=== PATIENT | male | born 1945 | race Caucasian/White ===

== ENCOUNTER 2018-09-09 18:36 | Inpatient (IN) | payer MEDICARE, OTHER ==
[~2018-09-09] VITALS: Ht 175.3 cm; Wt 76.7 kg
[2018-09-09 18:45] VITALS: Ht 175.3 cm; Wt 76.7 kg
[2018-09-09 19:56] LABS: BASOPHIL % 1.1 % (0-2)
[2018-09-09 19:57] LABS: PLATELET COUNT 115 x10^3mcL (130-400); RED CELL DISTRIBUTION WIDTH 16.4 % (11.5-14.5)
[2018-09-09 20:01] LABS: CALCIUM 8.7 mg/dL (8.5-10.1); CARBON DIOXIDE 29.3 mmol/L (21-32); CHLORIDE SERUM 106 mmol/L (98-107); GLUCOSE SERUM 94 mg/dL (74-106); POTASSIUM SERUM 4.5 mmol/L (3.5-5.1); SODIUM SERUM 140 mmol/L (136-145)
[2018-09-09 20:06] LABS: ALKALINE PHOSPHATASE 52 U/L (46-116); ALT/SGPT 29 U/L (16-63); AST/SGOT 18 U/L (15-37)
[2018-09-09 20:11] LABS: ALBUMIN 3.3 g/dL (3.4-5.0); TOTAL PROTEIN, SERUM 5.7 g/dL (6.4-8.2)
[2018-09-09 23:15] LABS: MAGNESIUM 1.8 mg/dL (1.8-2.4); PHOSPHOROUS 4.4 mg/dL (2.5-4.9)
[2018-09-09 23:19] LABS: CHOLESTEROL/HDL RATIO 1.7
[2018-09-09 23:56] VITALS: BP 163/82
[2018-09-10 05:36] VITALS: BP 140/67
[2018-09-10 06:52] LABS: CALCIUM 8.5 mg/dL (8.5-10.1); CARBON DIOXIDE 26.1 mmol/L (21-32); CHLORIDE SERUM 108 mmol/L (98-107); CREATININE SERUM 1.7 mg/dL (0.7-1.3); GLUCOSE SERUM 101 mg/dL (74-106); MAGNESIUM 1.8 mg/dL (1.8-2.4); PHOSPHOROUS 3.8 mg/dL (2.5-4.9); POTASSIUM SERUM 4.4 mmol/L (3.5-5.1); SODIUM SERUM 142 mmol/L (136-145)
[2018-09-10 07:29] LABS: BASOPHIL % 0.7 % (0-2); PLATELET COUNT 129 x10^3mcL (130-400); RED CELL DISTRIBUTION WIDTH 16.2 % (11.5-14.5)
[2018-09-10 09:33] VITALS: BP 154/85
[2018-09-10] MEDS ORDERED: TRAZODONE50 M1 PO (15:32)
[2018-09-10] MEDS ORDERED: SEROQUEL25 MG PO ×2 (15:33→15:34)
[2018-09-10] MEDS ORDERED: HYDRALAZINE HCL25 MG PO (15:35)
[2018-09-10] MEDS ORDERED: LIPITOR80 MG PO (15:35)
[2018-09-10] MEDS ORDERED: NAMENDA10 M2 PO (15:35)
[2018-09-10] MEDS ORDERED: ASPIR 8181 MG PO (15:35)
[2018-09-10 17:22] VITALS: BP 129/63
[2018-09-10 22:53] VITALS: BP 153/71
[2018-09-11 04:15] VITALS: BP 140/58
[2018-09-11 08:04] LABS: BASOPHIL % 0.4 % (0-2); PLATELET COUNT 136 x10^3mcL (130-400)
[2018-09-11 09:06] LABS: CALCIUM 9.6 mg/dL (8.5-10.1); CARBON DIOXIDE 25.3 mmol/L (21-32); CHLORIDE SERUM 106 mmol/L (98-107); CREATININE SERUM 1.7 mg/dL (0.7-1.3); GLUCOSE SERUM 103 mg/dL (74-106); POTASSIUM SERUM 4.2 mmol/L (3.5-5.1); SODIUM SERUM 141 mmol/L (136-145)
[2018-09-11 09:15] LABS: MAGNESIUM 1.7 mg/dL (1.8-2.4); PHOSPHOROUS 3.3 mg/dL (2.5-4.9)
[2018-09-11 09:43] VITALS: BP 142/70
[2018-09-11 12:21] VITALS: BP 142/70
[2018-09-11 16:48] VITALS: BP 122/86
== END 2018-09-11 20:15 | disposition short-term general hospital (02) | DRG 604 ==
LOC: ED 18:36 → MU 22:32
PROVIDERS: Specialist; ADMIT Family Medicine
DX: S61.211A Laceration without foreign body of left index finger without damage to nail, initial encounter (principal); N17.0 Acute kidney failure with tubular necrosis; E44.1 Mild protein-calorie malnutrition; E86.0 Dehydration; D64.9 Anemia, unspecified; D69.6 Thrombocytopenia, unspecified; F03.90 Unspecified dementia, unspecified severity, without behavioral disturbance, psychotic disturbance, mood disturbance, and anxiety; Z95.0 Presence of cardiac pacemaker; X58.XXXA Exposure to other specified factors, initial encounter; Y93.9 Activity, unspecified; Y92.89 Other specified places as the place of occurrence of the external cause; Z68.24 Body mass index [BMI] 24.0-24.9, adult
CPT/HCPCS: J2060; J7030